=== PATIENT | female | born 1940 | race African-American/Black ===

== ENCOUNTER 2016-09-27 17:14 | Inpatient (IN) | payer MEDICARE, MEDICAID ==
[~2016-09-27] VITALS: Ht 160 cm; Wt 130.2 kg
[2016-09-27] MEDS ORDERED: IV NORMAL SALINE 1000ML BAG 1,000 ML IV SCH ×2 (17:35→19:10)
[2016-09-27] MEDS ORDERED: dilTIAZem IV PUSH 25 MG/5 ML VIAL IVP ONE (17:45)
[2016-09-27] MEDS ORDERED: ASPIRIN CHEWABLE 81 MG TABLET. PO ONE (17:45)
[2016-09-27] MEDS ORDERED: fentaNYL PF VIAL 100 MCG/2 ML VIAL IV PRN ×2 (17:45→19:15)
[2016-09-27 17:56] LABS: BASO % 1 % (0-3); EOS % 2 % (0-3); HEMATOCRIT 36.4 % (36.0-47.0); HEMOGLOBIN 11.5 g/dL (12.0-15.5); LYMPH # 1.9 x10^3/uL (1.0-4.8); LYMPH % 35 % (24-48); MEAN CORPUSCULAR HEMOGLOBIN 25 pg (25-35); MEAN CORPUSCULAR HGB CONC 32 g/dL (31-37); MEAN CORPUSCULAR VOLUME 79 fL (79-100); MONO % 5 % (0-9); NEUT % 57 % (31-73); PLATELET COUNT 311 x10^3/uL (140-400); RED BLOOD COUNT 4.63 x10^6/uL (3.50-5.40); RED CELL DISTRIBUTION WIDTH 13.3 % (11.5-14.5); WHITE BLOOD COUNT 5.3 x10^3/uL (4.0-11.0)
[2016-09-27 18:00] LABS: CALCIUM 8.9 mg/dL (8.5-10.1); CREATININE 1.6 mg/dL (0.6-1.0); POTASSIUM 3.3 mmol/L (3.5-5.1)
[2016-09-27 18:07] LABS: ALBUMIN 3.3 g/dL (3.4-5.0); ALBUMIN/GLOBULIN RATIO 0.8 (1.0-1.7); MAGNESIUM 1.7 mg/dL (1.8-2.4); TOTAL BILIRUBIN 0.2 mg/dL (0.2-1.0); TOTAL PROTEIN 7.5 g/dL (6.4-8.2)
[2016-09-27 18:14] LABS: CKMB MASS 0.8 ng/mL (0.0-3.6)
--- NOTE | 2016-09-27 19:09 | PHYS DOC ---
Past Medical History Past Medical History: A-Fib, Anemia, CHF, Other Additional Past Medical Histor: Sleep apnea. Past Surgical History: Angioplasty, Hysterectomy, Other Additional Past Surgical Histo: Tumor removed R)rib area,cardiac stents Additional Information: quit smoking in 1990 Alcohol Use: None Drug Use: None Adult General Chief Complaint Chief Complaint: RAPID HEART RATE HPI HPI Patient is a 75 year old female who presents with complaint of chest pain and irregular heartbeat. Patient states that she has been having pain over the past 2 weeks but started having severe constant pain over the past 3 days. Patient went to go see her primary physician earlier today who noted that the patient was in A. fib. The patient was then referred to Dr. Clay of cardiology who referred the patient to the emergency department. The patient is a poor historian. It is reported the patient has had a prior episode of A. fib but apparently converted to sinus rhythm many years ago. The patient is not currently on any blood thinners. Patient states that her pain is pressure-like and present and sharp. Patient denies any associated fevers. Patient states that her pain is improved with lying flat it worsens when she sits up. Patient rates the pain as 6 out of 10 when sitting up. Review of Systems Review of Systems Constitutional: Denies fever or chills [] Eyes: Denies change in visual acuity, redness, or eye pain [] HENT: Denies nasal congestion or sore throat [] Respiratory: Shortness of breath [] Cardiovascular: Chest pain [] GI: Denies abdominal pain, nausea, vomiting, bloody stools or diarrhea [] : Denies dysuria or hematuria [] Musculoskeletal: Denies back pain or joint pain [] Integument: Denies rash or skin lesions [] Neurologic: Denies headache, focal weakness or sensory changes [] Current Medications Current Medications Current Medications Medications (Trade) Dose Ordered Sig/Felix Start Time Stop Time Status Last Admin Dose Admin Aspirin (Children'S Aspirin) 324 mg 1X ONCE 09/27/16 17:45 09/27/16 17:46 DC 09/27/16 17:57 324 MG Diltiazem HCl (Cardizem) 20 mg 1X ONCE 09/27/16 17:45 09/27/16 17:46 DC 09/27/16 17:58 20 MG Diltiazem HCl 125 mg/Dextrose 125 ml @ 0 mls/hr CONT PRN 09/27/16 18:45 Fentanyl Citrate (Fentanyl 2ml Vial) 50 mcg PRN Q15MIN PRN 09/27/16 17:45 09/28/16 17:44 Sodium Chloride 1,000 ml @ 100 mls/hr Q10H 09/27/16 17:35 09/28/16 03:34 09/27/16 17:35 100 MLS/HR Allergies Allergies Allergies Coded Allergies Type Severity Reaction Last Updated Verified codeine Adverse Reaction Intermediate nausea and vomiting 09/27/16 Yes Physical Exam Physical Exam Constitutional: Alert, afebrile, appears in mild to moderate discomfort. [] HENT: Normocephalic, atraumatic, bilateral external ears normal, oropharynx moist, no oral exudates, nose normal. [] Eyes: PERRLA, EOMI, conjunctiva normal, no discharge. [] Neck: Normal range of motion, no tenderness, supple, no stridor. [] Cardiovascular: Tachycardia, irregular rhythm, no murmur [] Lungs & Thorax: Bilateral breath sounds clear to auscultation [] Abdomen: Bowel sounds normal, soft, no tenderness, no masses, no pulsatile masses. [] Skin: Warm, dry, no erythema, no rash. [] Back: No tenderness, no CVA tenderness. [] Extremities: No tenderness, no cyanosis, no clubbing, ROM intact, no edema. [] Neurologic: Alert and oriented X 3, normal motor function, normal sensory function, no focal deficits noted. [] Current Patient Data Vital Signs Vital Signs Date Time Temp Pulse Resp B/P (MAP) Pulse Ox O2 Delivery O2 Flow Rate FiO2 09/27/16 17:59 106 20 119/73 (88) 98 09/27/16 17:23 98.6 Room Air 98.6 Lab Values Laboratory Tests Test 09/27/16 17:45 White Blood Count 5.3 x10^3/uL (4.0-11.0) Red Blood Count 4.63 x10^6/uL (3.50-5.40) Hemoglobin 11.5 g/dL (12.0-15.5) L Hematocrit 36.4 % (36.0-47.0) Mean Corpuscular Volume 79 fL (79-100) Mean Corpuscular Hemoglobin 25 pg (25-35) Mean Corpuscular Hemoglobin Concent 32 g/dL (31-37) Red Cell Distribution Width 13.3 % (11.5-14.5) Platelet Count 311 x10^3/uL (140-400) Neutrophils (%) (Auto) 57 % (31-73) Lymphocytes (%) (Auto) 35 % (24-48) Monocytes (%) (Auto) 5 % (0-9) Eosinophils (%) (Auto) 2 % (0-3) Basophils (%) (Auto) 1 % (0-3) Neutrophils # (Auto) 3.0 x10^3uL (1.8-7.7) Lymphocytes # (Auto) 1.9 x10^3/uL (1.0-4.8) Monocytes # (Auto) 0.3 x10^3/uL (0.0-1.1) Eosinophils # (Auto) 0.1 x10^3/uL (0.0-0.7) Basophils # (Auto) 0.0 x10^3/uL (0.0-0.2) Sodium Level 138 mmol/L (136-145) Potassium Level 3.3 mmol/L (3.5-5.1) L Chloride Level 103 mmol/L (98-107) Carbon Dioxide Level 26 mmol/L (21-32) Anion Gap 9 (6-14) Blood Urea Nitrogen 21 mg/dL (7-20) H Creatinine 1.6 mg/dL (0.6-1.0) H Estimated GFR (Cockcroft-Gault) 38.0 BUN/Creatinine Ratio 13 (6-20) Glucose Level 169 mg/dL (70-99) H Calcium Level 8.9 mg/dL (8.5-10.1) Magnesium Level 1.7 mg/dL (1.8-2.4) L Total Bilirubin 0.2 mg/dL (0.2-1.0) Aspartate Amino Transferase (AST) 14 U/L (15-37) L Alanine Aminotransferase (ALT) 29 U/L (14-59) Alkaline Phosphatase 111 U/L (46-116) Creatine Kinase 135 U/L (26-192) Creatine Kinase MB (Mass) 0.8 ng/mL (0.0-3.6) Creatine Kinase MB Relative Index 0.6 % (0-4) Troponin I Quantitative < 0.017 ng/mL (0.000-0.055) BP-Jpr-U-Type Natriuretic Peptide 361 pg/mL (0-449) Total Protein 7.5 g/dL (6.4-8.2) Albumin 3.3 g/dL (3.4-5.0) L Albumin/Globulin Ratio 0.8 (1.0-1.7) L Lipase 183 U/L (73-393) Laboratory Tests 09/27/16 17:45 Laboratory Tests 09/27/16 17:45 EKG EKG Interpreted by me: Heart rate 121, atrial fibrillation with rapid ventricular response, T-wave inversions in V2 through V4, no acute ST elevations or depressions [] Radiology/Procedures Radiology/Procedures One view AP chest x-ray interpreted by me: No infiltrate, no effusions, normal cardiac silhouette [] Course & Med Decision Making Course & Med Decision Making Pertinent Labs and Imaging studies reviewed. (See chart for details) Patient was started on Cardizem in the emergency department with improvement in heart rate. Patient however remains in atrial fibrillation. Patient started on IV heparin for anticoagulation to prevent thromboemboli due to irregular heart rhythm. I spoke with Dr. Luz who accepted care patient in hospital. A consult was placed to Dr. Henriquez of cardiology to follow patient in hospital. Critical care time excluding procedures: 50 minutes Dragon Disclaimer Dragon Disclaimer This electronic medical record was generated, in whole or in part, using a voice recognition dictation system. Departure Departure Impression: Primary Impression: Atrial fibrillation with RVR Additional Impressions: Chest pain Renal insufficiency Disposition: ADMITTED INPATIENT Admitting Physician: Other Condition: GUARDED Referrals: ANG ANDERSON MD (PCP) Problem Qualifiers Additional Impressions: Chest pain Chest pain type: unspecified Qualified Codes: R07.9 - Chest pain, unspecified LEYDI FULLER MD Sep 27, 2016 19:09
[2016-09-27] MEDS ORDERED: ONDANSETRON PF 4 MG/2 ML VIAL. IV PRN (19:15)
[2016-09-27] MEDS ORDERED: HEPARIN for IV BOLUS 10,000 UNIT/10 ML VIAL. IV ONE (19:15)
[2016-09-27] MEDS ORDERED: HEPARIN 25,000UTS/500ML PREMIX 500 ML IV PRN (19:15)
[2016-09-27] MEDS ORDERED: ACETAMINOPHEN 325 MG TABLET. PO PRN (19:15)
[2016-09-27 20:00] VITALS: BP 112/71
[2016-09-27 20:04] VITALS: BP 112/71
[2016-09-27 21:00] VITALS: BP 122/62
--- NOTE | 2016-09-27 21:49 | ACF ---
Admission Forms Criteria ATRIAL FIBRILLATION Clinical Indications for Admission to Inpatient Care (Place 'X' for any and all applicable criteria): Admission indicated for ANY ONE of the following(1)(2)(3)(4)(5) : [ ]I. Myocardial ischemia [ ]II. Dyspnea or hypoxemia [ ]III. Hemodynamic instability [ ]IV. Heart failure (e.g., pulmonary edema) (7) [ ]V. New-onset (less than 48 hours) atrial fibrillation with high risk for causing complications secondary to comorbidities (eg, symptomatic heart failure ) [ ]. Altered mental status [ ]VII. Syncope [ ]VIII. Patient has implantable cardioverter defibrillator that has fired more than once within past 24hr or needs immediate adjustment of settings that cannot be done other than in inpatient setting. (8) [ ]IX. Suspected accessory pathway (e.g., Ublid-Gjtpszfsi-Ttsmc syndrome) on ECG [ ]X. Recent systemic thromboembolism (eg, stroke) [ ]XI. Medication toxicity (e.g., digitalis) causing arrhythmia(9) [ ]XII. Underlying medical condition that necessitates inpatient care (e.g., thyrotoxicosis, pneumonia) (10) [ ]XIII. Continuous ECG monitoring is required for condition causing arrhythmia (e.g., severe hyperkalemia, hypokalemia, acid-base disturbance).(11)(12)(13) [ ]XIV. Initiation of antiarrhythmic drug therapy is needed in patient at high risk of adverse effects as indicated by ANY ONE of the following: [ ]a) Significant structural heart disease (e.g., reduced ejection fraction, congenital heart disease, valvular heart disease) [ ]b) Prolonged QT interval [ ]c) Underlying sinus node or atrioventricular conduction disturbances [ ]d) Need for treatment with antiarrhythmic drugs that have significant proarrhythmic potential (e.g., dofetilide, sotalol, procainamide) [ ]e) Patient whose sinus rhythm has never been observed on ECG [ ]XV. Intolerable symptoms despite optimal outpatient treatment [ ]XVI. Elective or urgent cardioversion that cannot be performed on outpatient basis or during observation care. [A] (Use also Atrial Fibrillation: Observation Care ) as appropriate.(14) [ ]XVII.Contraindications and/or Inappropriate clinical situations for Observational Care in patients with Atrial Fibrillation, when ANY ONE of the following is required: [ ]a) Patient with High risk of cardiac embolism (e.g, patients with previous cardiac embolism, LVEF < 40%, age >75 and patients with prosthetic valve) 18 [ ]b) Patient with Moderate risk including DM patient, CAD and patient aged 65-75 18 [ ]c) Patient with any change in cardiac biomarker especially troponin should be managed as high risk in an inpatient setting 19 [ ]d) Physician judgement irrespective of ECG and other diagnostic findings 20 [X]XVIII.General contraindications and/or Inappropriate clinical situations for Observational Care in patients with Atrial Fibrillation, when ANY ONE of the following is required: [X]a) Prediction of prolongation of LOS based on ANY ONE of the following may be considered as a contraindication for observational care 2, 3, 4, 5, 6, 7, 8, 9, 10, 11 [X]i) Age > 65 yrs. [ ]ii) Patient arriving by ambulance [ ]iii) Patient with high acuity [ ]iv) Patient requiring vital sign monitoring [ ]v) Patient on IV medication [ ]b) Systolic blood pressures 180mmHg 3,12 [ ]c) Patient with altered mental status including delirium and other alteration of consciousness3 [ ]d) Patient whose discharge disposition will be to a usp home or rehabilitation home should not be managed in Emergency Department Observation Unit. CMS rule requires 3 days hospital stay before such placement.3,13 [ ]e) Patient with failure to thrive due to broad array of etiologies 3,16,17 [ ]f) Inability to ambulate 3,14 Extended stay beyond goal length of stay may be needed for (1)(25)(26): [ ]a) Unstable comorbidities [ ]b) Persistently uncontrolled atrial fibrillation or other arrhythmias [ ]c) Acute thromboembolic event (e.g., stroke, limb ischemia) [ ]d) Need for inpatient attainment of full anticoagulation The original [employer] content created by [employer] has been revised. The portions of the content which have been revised are identified through the use of italic text or in bold, and [facility] has neither reviewed nor approved the modified material. All other unmodified content is copyright [employer]. Please see references footnoted in the original [facility] edition 2016 Admission Criteria Met?: Yes YOEL AGUILAR 5, 2017 21:49
[2016-09-27 22:00] VITALS: BP 121/67
[2016-09-27 22:47] VITALS: BP 120/64
[2016-09-27 23:00] VITALS: BP 123/62
--- NOTE | 2016-09-27 23:19 | HP ---
ADMIT DATE: 09/27/2016 CHIEF COMPLAINT: Shortness of breath, atrial fibrillation with rapid ventricular response. HISTORY OF PRESENT ILLNESS: The patient is a 75-year-old -[place] woman who presented on the advice of her primary care physician with chest pain and shortness of breath. She was found with AFib and RVR and admitted to the hospital. On further questioning, she admits that her pain has been off and on for the past 2 weeks, but over the past 3 days, the pain has been getting more severe as well as more frequent. She actually saw her PCP earlier today who noted her to be in AFib and she was referred to Dr. Clay, her yard stocker, who promptly referred her to the ER for further workup. The patient thinks she had a previous episode of AFib, but apparently converted back to sinus rhythm on her own. She has not been on blood thinners in the past few years. She denies any fevers or chills. Her pain actually is sharp and improved with lying flat, worse with sitting up. Currently, she is supine, pain is adequate and her breathing has much improved. She herself is unable to tell that her heart beat is fast. PAST MEDICAL HISTORY: CHF, AFib, obstructive sleep apnea, anemia, CAD, status post angioplasty, had "melanoma on her chest," on further questioning, however, appears to be benign cyst. FAMILY HISTORY: Unknown to the patient. SOCIAL HISTORY: Lives by herself. Quit smoking in the mid 90s. Denies any alcohol or drug use. ALLERGIES: CODEINE. MEDICATIONS: MAR reconciled with home medications. REVIEW OF SYSTEMS: Breathing and chest pain are much improved at this time. She feels comfortable. Denies any fevers or chills. Denies any nausea, vomiting, diaphoresis. Rest of organ system review is negative. PHYSICAL EXAMINATION: VITAL SIGNS: From today show a blood pressure of 112/71, heart rate of 105, respiratory rate at 20. She is afebrile. GENERAL: This is a 75-year-old obese -[place] woman, alert and oriented, no acute distress. HEENT: Shows no scleral icterus. NECK: Supple, without any palpable lymphadenopathy. LUNGS: Fairly clear anteriorly. HEART: Irregular and tachycardic. ABDOMEN: Obese, positive bowel sounds, no tenderness to palpation. EXTREMITIES: Show no edema. SKIN: Warm, soft and dry without any rash. LABORATORY DATA: CBC with WBC of 5.3, hemoglobin 11.5, platelets of 311, BUN and creatinine of 21 and 1.6, potassium at 3.3, mag at 1.7. LFTs within normal. IMAGING: Chest x-ray obtained in the Emergency Room and reviewed by myself shows no acute cardiopulmonary findings, sternotomy wires noted. ASSESSMENT AND PLAN: The patient is a 75-year-old woman with CAD, CHF, now AFib with RVR. Possibly history of AFib in the past. For now, she has been started on Cardizem drip as well as heparin, given her renal issues, precluding Lovenox. We will monitor for now, titrate Cardizem as tolerated. Cardiac consult will be obtained in a.m. We will need echocardiogram as well as potential further workup for heart disease and AFib. The patient does have anemia, which is borderline, microcytic. Suspicion for iron deficiency is given, cannot rule out possible inherited anemia as well. We will obtain iron studies and replete vitamins as indicated. ROSELINE SCHREIBER MD DR: UR/nts JOB#: [id number] / [id number] ANG Loyola MD MTDD
[2016-09-27] MEDS ORDERED: MELO7.5T29 PO (23:26)
[2016-09-27] MEDS ORDERED: ESCI10TA PO (23:26)
[2016-09-27] MEDS ORDERED: MULT-658 PO (23:26)
[2016-09-27] MEDS ORDERED: FERR-26 PO (23:26)
[2016-09-27] MEDS ORDERED: FURO40TA4 PO (23:26)
[2016-09-27] MEDS ORDERED: METO25TA9 PO (23:26)
[2016-09-27] MEDS ORDERED: BUPR300T4 PO (23:26)
[2016-09-27] MEDS ORDERED: ATOR10TA60 PO (23:26)
[2016-09-27] MEDS ORDERED: LEVO125T PO (23:26)
[2016-09-27] MEDS ORDERED: LISI-334 PO (23:26)
[2016-09-27] MEDS ORDERED: IPRA4AER IH (23:26)
[2016-09-27] MEDS ORDERED: OMEG300C PO (23:26)
[2016-09-27] MEDS ORDERED: ERGO500027 PO (23:26)
[2016-09-27] MEDS ORDERED: POTA20TA82 PO (23:26)
[2016-09-28] VITALS (12 sets, daily range): BP systolic 95–140; BP diastolic 54–79
[2016-09-28] MEDS ORDERED: PNEUMOCOCCAL VAX SCREEN BY RX. MC ONE
[2016-09-28 02:53] LABS: BASO % 1 % (0-3); EOS % 3 % (0-3); HEMATOCRIT 34.8 % (36.0-47.0); HEMOGLOBIN 11.1 g/dL (12.0-15.5); LYMPH # 2.3 x10^3/uL (1.0-4.8); LYMPH % 41 % (24-48); MEAN CORPUSCULAR HEMOGLOBIN 25 pg (25-35); MEAN CORPUSCULAR HGB CONC 32 g/dL (31-37); MEAN CORPUSCULAR VOLUME 78 fL (79-100); MONO % 6 % (0-9); NEUT % 49 % (31-73); PLATELET COUNT 310 x10^3/uL (140-400); RED BLOOD COUNT 4.47 x10^6/uL (3.50-5.40); RED CELL DISTRIBUTION WIDTH 13.2 % (11.5-14.5); WHITE BLOOD COUNT 5.6 x10^3/uL (4.0-11.0)
[2016-09-28 03:25] LABS: CALCIUM 8.7 mg/dL (8.5-10.1); CREATININE 1.5 mg/dL (0.6-1.0); POTASSIUM 3.6 mmol/L (3.5-5.1)
[2016-09-28 03:46] LABS: % SAT IRON 26 % (15-34); IRON,SERUM 54 ug/dL (50-170)
--- NOTE | 2016-09-28 07:43 | EKG ---
[facility] [address] [place] [address] Test Date: 2016-09-27 Test Time: 17:28:30 Pat Name: SHANTI VALLEJO Department: Room: 244 1 Gender: F Shrimp Picker: : [id number] Requested By: LEYDI FULLER Order Number: [id number] Reading MD: Lana Davila Measurements Intervals [place] Rate: 121 P: -69 MD: 124 QRS: -23 QRSD: 74 T: 85 QT: 330 QTc: 471 Interpretive Statements SINUS TACHYCARDIA ATRIAL PREMATURE COMPLEX(ES) LEFTWARD AXIS T ABNORMALITY IN ANTEROSEPTAL LEADS ABNORMAL ECG RI6.01 No previous ECG available for comparison Electronically Signed On 09-30-2016 22:26:56 CDT by Lana Davila
--- NOTE | 2016-09-28 08:26 | RAD ---
Portable chest, 09/27/2016: History: Chest pain There has been a previous median sternotomy. The heart is at the upper limits of normal in size. There is tortuosity of the thoracic aorta. The pulmonary vascularity is normal. No pulmonary infiltrates are seen. There is no evidence of pleural fluid. IMPRESSION: No acute cardiopulmonary abnormality is detected.
[2016-09-28] MEDS ORDERED: PNEUMOC CONJ VACC 23-VALENT 0.5 ML VIAL. VAX IM ONE (09:00)
[2016-09-28] MEDS ORDERED: ONDANSETRON PF 4 MG/2 ML VIAL. IV PRN (09:31)
[2016-09-28] MEDS ORDERED: ERGOCALCIFEROL (VITAMIN D2) 50,000 UNIT CAPSULE. PO SCH (10:00)
[2016-09-28] MEDS ORDERED: METOPROLOL SUCC 24HR ER 25 MG TAB.ER.24H. PO SCH (10:00)
[2016-09-28] MEDS ORDERED: LISINOPRIL 20 MG TABLET PO SCH (10:00)
[2016-09-28] MEDS: IPRATRPIUM/ALBUTEROL 0.5/2.5MG 3 ML NEBU. NEB SCH ×3 (10:56→19:41)
--- NOTE | 2016-09-28 10:57 | PDOC2 ---
ANNE CORTEZ WET CHAR CONVEYOR TENDER 09/28/16 1057: CARDIAC CONSULT DATE OF CONSULT Date of Consult DATE: 09/28/16 TIME: 10:48 REASON FOR CONSULT Reason for Consult: AFIB with RVR REFERRING PHYSICIAN Referring Physician: Dr. Clifford SOURCE Source: Chart review, Patient HISTORY OF PRESENT ILLNESS HISTORY OF PRESENT ILLNESS This is 75 yo female who presented with complaints of chest pain and shortness of breath. Patient reports she has been experiencing shortness and breath and fatigue for the last couple of week. Much worse the last couple of days, which prompted her to visit her PCP. At visit, was noted to be in AFIB with RVR and was referred to the ED for further evaluation and treatment. Last week, developed chest pain. Describes as burning in her central chest. Took antacid without relieved. Pain seemed to be worsened by applying pressure to her chest; would make the pain "tight." Repositioning would improve the pain. Has been fatigued for the last couple of weeks and also c/o CUI for the last week intermittently. Denies any palpitations, dizziness, diaphoresis, orthopnea, LE edema, or nausea/vomiting. Since admission, CP and SOA have resolved. Reports compliance with medications. Does have a history of CHD and CAD with reports of stent placement in 1999. Use to follow with environmental solutions engineer at but has not seen one in many years. Being managed by PCP. PAST MEDICAL HISTORY Cardiovascular: AFIB (Paroxysmal ), CAD (s/p remote stent ), CHF (diastolic ), HTN Pulmonary: COPD, Other (SUMIT) GI: GERD Heme/Onc: Anemia NOS Psych: Depression Musculoskeletal: Osteoarthritis, Other (DJD ) Rheumatologic: No pertinent hx Infectious disease: No pertinent hx ENT: No pertinent hx Renal/: Chronic renal insuff Endocrine: Hypothyroidism Dermatology: No pertinent hx PAST SURGICAL HISTORY Past Surgical History: Total knee replacement, Hysterectomy, Other (skin CA removal) FAMILY HISTORY Family History: Coronary Artery Disease, Diabetes, Hypertension SOCIAL HISTORY Smoke: No ALCOHOL: none Drugs: None Lives: Alone CURRENT MEDICATIONS CURRENT MEDICATIONS Current Medications Medications (Trade) Dose Ordered Sig/Felix Route PRN Reason Start Time Stop Time Status Last Admin Dose Admin Diltiazem HCl (Cardizem) 20 mg 1X ONCE IVP 09/27/16 17:45 09/27/16 17:46 DC 09/27/16 17:58 Aspirin (Children'S Aspirin) 324 mg 1X ONCE PO 09/27/16 17:45 09/27/16 17:46 DC 09/27/16 17:57 Sodium Chloride 1,000 ml @ 100 mls/hr Q10H IV 09/27/16 17:35 09/28/16 03:34 DC 09/27/16 17:35 Diltiazem HCl 125 mg/Dextrose 125 ml @ 0 mls/hr CONT PRN IV SEE I/O RECORD 09/27/16 18:45 09/27/16 19:06 Heparin Sodium (Porcine) (Heparin Sodium) 4,000 unit 1X ONCE IV 09/27/16 19:15 09/27/16 19:16 DC 09/27/16 20:25 Heparin Sodium/ Dextrose 500 ml @ 0 mls/hr CONT PRN IV SEE I/O RECORD 09/27/16 19:15 09/27/16 20:35 Sodium Chloride 1,000 ml @ 100 mls/hr Q10H IV 09/27/16 19:10 09/27/16 23:27 DC 09/27/16 20:33 ALLERGIES ALLERGIES: Coded Allergies: codeine (Verified Adverse Reaction, Intermediate, nausea and vomiting, 09/27) ROS Review of System 14 point ROS conducted with pertinent positives noted above in HPI. PHYSICAL EXAM General: Alert, Oriented X3, Cooperative, No acute distress HEENT: Mucous membr. moist/pink Lungs: Clear to auscultation, Normal air movement Heart: Regular rate, Normal S1, Normal S2, Other (soft systolic murmur ) Abdomen: Other (truncal obesity ) Extremities: No edema, Normal pulses Skin: No significant lesion Neuro: Normal speech, Sensation intact Psych/Mental Status: Mental status NL, Mood NL MUSCULOSKELETAL: Osteoarthritic changes both hands VITALS VITALS Vital Signs Date Time Temp Pulse Resp B/P (MAP) Pulse Ox O2 Delivery O2 Flow Rate FiO2 09/28/16 07:58 97.9 90 20 118/61 (80) 97 Room Air 97.9 LABS Lab: Laboratory Tests Test 09/27/16 17:45 09/28/16 02:25 09/28/16 07:15 White Blood Count 5.3 x10^3/uL (4.0-11.0) 5.6 x10^3/uL (4.0-11.0) Red Blood Count 4.63 x10^6/uL (3.50-5.40) 4.47 x10^6/uL (3.50-5.40) Hemoglobin 11.5 g/dL (12.0-15.5) 11.1 g/dL (12.0-15.5) Hematocrit 36.4 % (36.0-47.0) 34.8 % (36.0-47.0) Mean Corpuscular Volume 79 fL (79-100) 78 fL (79-100) Mean Corpuscular Hemoglobin 25 pg (25-35) 25 pg (25-35) Mean Corpuscular Hemoglobin Concent 32 g/dL (31-37) 32 g/dL (31-37) Red Cell Distribution Width 13.3 % (11.5-14.5) 13.2 % (11.5-14.5) Platelet Count 311 x10^3/uL (140-400) 310 x10^3/uL (140-400) Neutrophils (%) (Auto) 57 % (31-73) 49 % (31-73) Lymphocytes (%) (Auto) 35 % (24-48) 41 % (24-48) Monocytes (%) (Auto) 5 % (0-9) 6 % (0-9) Eosinophils (%) (Auto) 2 % (0-3) 3 % (0-3) Basophils (%) (Auto) 1 % (0-3) 1 % (0-3) Neutrophils # (Auto) 3.0 x10^3uL (1.8-7.7) 2.8 x10^3uL (1.8-7.7) Lymphocytes # (Auto) 1.9 x10^3/uL (1.0-4.8) 2.3 x10^3/uL (1.0-4.8) Monocytes # (Auto) 0.3 x10^3/uL (0.0-1.1) 0.3 x10^3/uL (0.0-1.1) Eosinophils # (Auto) 0.1 x10^3/uL (0.0-0.7) 0.2 x10^3/uL (0.0-0.7) Basophils # (Auto) 0.0 x10^3/uL (0.0-0.2) 0.0 x10^3/uL (0.0-0.2) Sodium Level 138 mmol/L (136-145) 141 mmol/L (136-145) Potassium Level 3.3 mmol/L (3.5-5.1) 3.6 mmol/L (3.5-5.1) Chloride Level 103 mmol/L (98-107) 104 mmol/L (98-107) Carbon Dioxide Level 26 mmol/L (21-32) 28 mmol/L (21-32) Anion Gap 9 (6-14) 9 (6-14) Blood Urea Nitrogen 21 mg/dL (7-20) 21 mg/dL (7-20) Creatinine 1.6 mg/dL (0.6-1.0) 1.5 mg/dL (0.6-1.0) Estimated GFR (Cockcroft-Gault) 38.0 41.0 BUN/Creatinine Ratio 13 (6-20) Glucose Level 169 mg/dL (70-99) 111 mg/dL (70-99) Calcium Level 8.9 mg/dL (8.5-10.1) 8.7 mg/dL (8.5-10.1) Magnesium Level 1.7 mg/dL (1.8-2.4) Total Bilirubin 0.2 mg/dL (0.2-1.0) Aspartate Amino Transf (AST/SGOT) 14 U/L (15-37) Alanine Aminotransferase (ALT/SGPT) 29 U/L (14-59) Alkaline Phosphatase 111 U/L (46-116) Creatine Kinase 135 U/L (26-192) Creatine Kinase MB (Mass) 0.8 ng/mL (0.0-3.6) Creatine Kinase MB Relative Index 0.6 % (0-4) Troponin I Quantitative < 0.017 ng/mL (0.000-0.055) < 0.017 ng/mL (0.000-0.055) < 0.017 ng/mL (0.000-0.055) EY-Oyt-K-Type Natriuretic Peptide 361 pg/mL (0-449) Total Protein 7.5 g/dL (6.4-8.2) Albumin 3.3 g/dL (3.4-5.0) Albumin/Globulin Ratio 0.8 (1.0-1.7) Lipase 183 U/L (73-393) Heparin Anti-Xa Act, Unfractionated 0.94 IU/mL (0.30-0.70) Iron Level 54 ug/dL (50-170) Total Iron Binding Capacity 205 ug/dL (250-450) Iron Saturation 26 % (15-34) Ferritin 225 ng/mL (8-252) ASSESSMENT/PLAN ASSESSMENT/PLAN 1. AFIB with RVR with h/o PAFIB. Stop Cardizem gtt. Resume home BB and increase dose for better rate control [id number] correlating with a 7.2% risk for stroke Lovenox treatment dosing for stroke prophylaxis consider for Eliquis upon discharge; no history of GI bleeds or recent falls 2. Chest pain, atypical likely MSK in origin as it is reproducible with palpation of central chest troponin series normal; AMI ruled out. 3. H/o CAD remote h/o PCI/stent placement in 1999 per report details unknown. Given history and presentation, will proceed with MPI in am to r/o ischemia NPO after MN. 4. Chronic diastolic heart failure Echo 07/08 shows preserved LV function with an EF of 55% will repeat echo compensated; continue with routine oral diuresis 5. Hypertension controlled with Cardizem gtt resume home antiHTN therapy 6. Hyperlipidemia statin therapy check lipids 7. ISAIAH with CKD 8. Hypothyroidism on replacement therapy check TSH 9. Hypomagnesemia replace. monitor lytes Problems: JENNIFER RIVERA MD 09/29/16 0838: CARDIAC CONSULT ALLERGIES ALLERGIES: Coded Allergies: codeine (Verified Adverse Reaction, Intermediate, nausea and vomiting, 09/27) ASSESSMENT/PLAN ASSESSMENT/PLAN Patient seen and examined 09/28/16. Agree with CRACKING UNIT OPERATOR's assessment and plan. Atrial fibrillation rate better controlled. Agree with stopping Cardizem infusion and increasing beta jose e dose for better rate control. Check 2-D echo to assess LV systolic function. Chest pain atypical but with history of coronary artery disease we will obtain Lexiscan nuclear stress test to rule out ischemic etiology. Agree with initiating eliquis for stroke prophylaxis. Plan for outpatient cardioversion in 3-4 weeks if patient does not convert spontaneously. Thank you for your consultation. Problems: ANNE CORTEZ APRN Sep 28, 2016 10:57 JENNIFER RIVERA MD Sep 29, 2016 08:38
[2016-09-28] MEDS: MELOXICAM 7.5 MG TABLET PO SCH ×2 (12:42→20:42)
[2016-09-28] MEDS: FERROUS SULFATE 325 MG TABLET. PO SCH ×2 (12:42→18:05)
[2016-09-28] MEDS: buPROPion XL 150 MG TAB.ER.24H. PO SCH (12:43)
[2016-09-28] MEDS: ESCITALOPRAM 10 MG TABLET. PO SCH (12:43)
[2016-09-28] MEDS: MULTIVITAMIN with MINERAL TABLET. PO SCH (12:43)
[2016-09-28] MEDS: LEVOTHYROXINE 125 MCG TABLET PO SCH (12:43)
[2016-09-28] MEDS: FUROSEMIDE 40 MG TABLET. PO SCH (12:44)
[2016-09-28] MEDS: POTASSIUM CHLORIDE 20 MEQ TABLET.ER. PO SCH (12:44)
[2016-09-28] MEDS: ANTI-COAG MONITOR BY PHARMACY. MC PRN ×2 (12:59→14:55)
[2016-09-28] MEDS ORDERED: NON FORMULARY ITEM (Ipratropium/Albuterol Sulfate (Combivent Respimat Inhal) 2 INH) IH SCH (13:00)
--- NOTE | 2016-09-28 13:12 | PDOC ---
PROGRESS NOTES Chief Complaint Chief Complaint 1. AFIB with RVR with h/o PAFIB. 2. Chest pain, atypical likely MSK in origin as 3. H/o CAD remote h/o PCI/stent placement in 1999 per report 4. Chronic diastolic heart failure Echo 07/08 shows preserved LV function with an EF of 55% 5. Hypertension controlled with Cardizem gtt resume home antiHTN therapy 6. Hyperlipidemia statin therapy 7. ISAIAH with CKD 8. Hypothyroidism on replacement therapy 9. Hypomagnesemia History of Present Illness History of Present Illness NO complaints ABout to potty Still on cardizem gtt Denies CP or palpitations CARds note reviewed, hx paroxysmal a fib, considering elliquis on dc For echo today Home meds I have resumed MAg replaces TSH pending PLAN: Add t3 t4 since already on synthroid Lytes desi Ff up ECHo PT/OT RAte controlling agents resumed Dw RN and pt Vitals Vitals Vital Signs Date Time Temp Pulse Resp B/P (MAP) Pulse Ox O2 Delivery O2 Flow Rate FiO2 09/28/16 12:43 114 161/71 09/28/16 11:30 97.6 24 100 Room Air 97.6 Physical Exam General: Alert, Oriented X3, Cooperative, No acute distress Heart: Regular rate, Normal S1, Normal S2, Other (soft systolic murmur ) Lungs: Clear Abdomen: Normal bowel sounds, Other (truncal obesity ) Extremities: No edema, Normal pulses Skin: No significant lesion Labs LABS Laboratory Tests Test 09/27/16 17:45 09/28/16 02:25 09/28/16 07:15 09/28/16 11:05 White Blood Count 5.3 x10^3/uL (4.0-11.0) 5.6 x10^3/uL (4.0-11.0) Red Blood Count 4.63 x10^6/uL (3.50-5.40) 4.47 x10^6/uL (3.50-5.40) Hemoglobin 11.5 g/dL (12.0-15.5) 11.1 g/dL (12.0-15.5) Hematocrit 36.4 % (36.0-47.0) 34.8 % (36.0-47.0) Mean Corpuscular Volume 79 fL (79-100) 78 fL (79-100) Mean Corpuscular Hemoglobin 25 pg (25-35) 25 pg (25-35) Mean Corpuscular Hemoglobin Concent 32 g/dL (31-37) 32 g/dL (31-37) Red Cell Distribution Width 13.3 % (11.5-14.5) 13.2 % (11.5-14.5) Platelet Count 311 x10^3/uL (140-400) 310 x10^3/uL (140-400) Neutrophils (%) (Auto) 57 % (31-73) 49 % (31-73) Lymphocytes (%) (Auto) 35 % (24-48) 41 % (24-48) Monocytes (%) (Auto) 5 % (0-9) 6 % (0-9) Eosinophils (%) (Auto) 2 % (0-3) 3 % (0-3) Basophils (%) (Auto) 1 % (0-3) 1 % (0-3) Neutrophils # (Auto) 3.0 x10^3uL (1.8-7.7) 2.8 x10^3uL (1.8-7.7) Lymphocytes # (Auto) 1.9 x10^3/uL (1.0-4.8) 2.3 x10^3/uL (1.0-4.8) Monocytes # (Auto) 0.3 x10^3/uL (0.0-1.1) 0.3 x10^3/uL (0.0-1.1) Eosinophils # (Auto) 0.1 x10^3/uL (0.0-0.7) 0.2 x10^3/uL (0.0-0.7) Basophils # (Auto) 0.0 x10^3/uL (0.0-0.2) 0.0 x10^3/uL (0.0-0.2) Sodium Level 138 mmol/L (136-145) 141 mmol/L (136-145) Potassium Level 3.3 mmol/L (3.5-5.1) 3.6 mmol/L (3.5-5.1) Chloride Level 103 mmol/L (98-107) 104 mmol/L (98-107) Carbon Dioxide Level 26 mmol/L (21-32) 28 mmol/L (21-32) Anion Gap 9 (6-14) 9 (6-14) Blood Urea Nitrogen 21 mg/dL (7-20) 21 mg/dL (7-20) Creatinine 1.6 mg/dL (0.6-1.0) 1.5 mg/dL (0.6-1.0) Estimated GFR (Cockcroft-Gault) 38.0 41.0 BUN/Creatinine Ratio 13 (6-20) Glucose Level 169 mg/dL (70-99) 111 mg/dL (70-99) Calcium Level 8.9 mg/dL (8.5-10.1) 8.7 mg/dL (8.5-10.1) Magnesium Level 1.7 mg/dL (1.8-2.4) Total Bilirubin 0.2 mg/dL (0.2-1.0) Aspartate Amino Transf (AST/SGOT) 14 U/L (15-37) Alanine Aminotransferase (ALT/SGPT) 29 U/L (14-59) Alkaline Phosphatase 111 U/L (46-116) Creatine Kinase 135 U/L (26-192) Creatine Kinase MB (Mass) 0.8 ng/mL (0.0-3.6) Creatine Kinase MB Relative Index 0.6 % (0-4) Troponin I Quantitative < 0.017 ng/mL (0.000-0.055) < 0.017 ng/mL (0.000-0.055) < 0.017 ng/mL (0.000-0.055) SO-Rma-V-Type Natriuretic Peptide 361 pg/mL (0-449) Total Protein 7.5 g/dL (6.4-8.2) Albumin 3.3 g/dL (3.4-5.0) Albumin/Globulin Ratio 0.8 (1.0-1.7) Lipase 183 U/L (73-393) Heparin Anti-Xa Act, Unfractionated 0.94 IU/mL (0.30-0.70) 0.60 IU/mL (0.30-0.70) Iron Level 54 ug/dL (50-170) Total Iron Binding Capacity 205 ug/dL (250-450) Iron Saturation 26 % (15-34) Ferritin 225 ng/mL (8-252) Review of Systems Review of Systems Denies 14 pt system Assessment and Plan Assessmemt and Plan Problems Medical Problems: (1) Atrial fibrillation with RVR Status: Acute (2) Chest pain Status: Acute (3) Renal insufficiency Status: Acute Problems: Comment Review of Relevant I have reviewed the following items mona (where applicable) has been applied. Labs Laboratory Tests Test 09/27/16 17:45 09/28/16 02:25 09/28/16 07:15 09/28/16 11:05 White Blood Count 5.3 x10^3/uL (4.0-11.0) 5.6 x10^3/uL (4.0-11.0) Red Blood Count 4.63 x10^6/uL (3.50-5.40) 4.47 x10^6/uL (3.50-5.40) Hemoglobin 11.5 g/dL (12.0-15.5) 11.1 g/dL (12.0-15.5) Hematocrit 36.4 % (36.0-47.0) 34.8 % (36.0-47.0) Mean Corpuscular Volume 79 fL (79-100) 78 fL (79-100) Mean Corpuscular Hemoglobin 25 pg (25-35) 25 pg (25-35) Mean Corpuscular Hemoglobin Concent 32 g/dL (31-37) 32 g/dL (31-37) Red Cell Distribution Width 13.3 % (11.5-14.5) 13.2 % (11.5-14.5) Platelet Count 311 x10^3/uL (140-400) 310 x10^3/uL (140-400) Neutrophils (%) (Auto) 57 % (31-73) 49 % (31-73) Lymphocytes (%) (Auto) 35 % (24-48) 41 % (24-48) Monocytes (%) (Auto) 5 % (0-9) 6 % (0-9) Eosinophils (%) (Auto) 2 % (0-3) 3 % (0-3) Basophils (%) (Auto) 1 % (0-3) 1 % (0-3) Neutrophils # (Auto) 3.0 x10^3uL (1.8-7.7) 2.8 x10^3uL (1.8-7.7) Lymphocytes # (Auto) 1.9 x10^3/uL (1.0-4.8) 2.3 x10^3/uL (1.0-4.8) Monocytes # (Auto) 0.3 x10^3/uL (0.0-1.1) 0.3 x10^3/uL (0.0-1.1) Eosinophils # (Auto) 0.1 x10^3/uL (0.0-0.7) 0.2 x10^3/uL (0.0-0.7) Basophils # (Auto) 0.0 x10^3/uL (0.0-0.2) 0.0 x10^3/uL (0.0-0.2) Sodium Level 138 mmol/L (136-145) 141 mmol/L (136-145) Potassium Level 3.3 mmol/L (3.5-5.1) 3.6 mmol/L (3.5-5.1) Chloride Level 103 mmol/L (98-107) 104 mmol/L (98-107) Carbon Dioxide Level 26 mmol/L (21-32) 28 mmol/L (21-32) Anion Gap 9 (6-14) 9 (6-14) Blood Urea Nitrogen 21 mg/dL (7-20) 21 mg/dL (7-20) Creatinine 1.6 mg/dL (0.6-1.0) 1.5 mg/dL (0.6-1.0) Estimated GFR (Cockcroft-Gault) 38.0 41.0 BUN/Creatinine Ratio 13 (6-20) Glucose Level 169 mg/dL (70-99) 111 mg/dL (70-99) Calcium Level 8.9 mg/dL (8.5-10.1) 8.7 mg/dL (8.5-10.1) Magnesium Level 1.7 mg/dL (1.8-2.4) Total Bilirubin 0.2 mg/dL (0.2-1.0) Aspartate Amino Transf (AST/SGOT) 14 U/L (15-37) Alanine Aminotransferase (ALT/SGPT) 29 U/L (14-59) Alkaline Phosphatase 111 U/L (46-116) Creatine Kinase 135 U/L (26-192) Creatine Kinase MB (Mass) 0.8 ng/mL (0.0-3.6) Creatine Kinase MB Relative Index 0.6 % (0-4) Troponin I Quantitative < 0.017 ng/mL (0.000-0.055) < 0.017 ng/mL (0.000-0.055) < 0.017 ng/mL (0.000-0.055) OI-Phv-L-Type Natriuretic Peptide 361 pg/mL (0-449) Total Protein 7.5 g/dL (6.4-8.2) Albumin 3.3 g/dL (3.4-5.0) Albumin/Globulin Ratio 0.8 (1.0-1.7) Lipase 183 U/L (73-393) Heparin Anti-Xa Act, Unfractionated 0.94 IU/mL (0.30-0.70) 0.60 IU/mL (0.30-0.70) Iron Level 54 ug/dL (50-170) Total Iron Binding Capacity 205 ug/dL (250-450) Iron Saturation 26 % (15-34) Ferritin 225 ng/mL (8-252) Laboratory Tests Test 09/27/16 17:45 09/28/16 02:25 09/28/16 07:15 09/28/16 11:05 White Blood Count 5.3 x10^3/uL (4.0-11.0) 5.6 x10^3/uL (4.0-11.0) Red Blood Count 4.63 x10^6/uL (3.50-5.40) 4.47 x10^6/uL (3.50-5.40) Hemoglobin 11.5 g/dL (12.0-15.5) 11.1 g/dL (12.0-15.5) Hematocrit 36.4 % (36.0-47.0) 34.8 % (36.0-47.0) Mean Corpuscular Volume 79 fL (79-100) 78 fL (79-100) Mean Corpuscular Hemoglobin 25 pg (25-35) 25 pg (25-35) Mean Corpuscular Hemoglobin Concent 32 g/dL (31-37) 32 g/dL (31-37) Red Cell Distribution Width 13.3 % (11.5-14.5) 13.2 % (11.5-14.5) Platelet Count 311 x10^3/uL (140-400) 310 x10^3/uL (140-400) Neutrophils (%) (Auto) 57 % (31-73) 49 % (31-73) Lymphocytes (%) (Auto) 35 % (24-48) 41 % (24-48) Monocytes (%) (Auto) 5 % (0-9) 6 % (0-9) Eosinophils (%) (Auto) 2 % (0-3) 3 % (0-3) Basophils (%) (Auto) 1 % (0-3) 1 % (0-3) Neutrophils # (Auto) 3.0 x10^3uL (1.8-7.7) 2.8 x10^3uL (1.8-7.7) Lymphocytes # (Auto) 1.9 x10^3/uL (1.0-4.8) 2.3 x10^3/uL (1.0-4.8) Monocytes # (Auto) 0.3 x10^3/uL (0.0-1.1) 0.3 x10^3/uL (0.0-1.1) Eosinophils # (Auto) 0.1 x10^3/uL (0.0-0.7) 0.2 x10^3/uL (0.0-0.7) Basophils # (Auto) 0.0 x10^3/uL (0.0-0.2) 0.0 x10^3/uL (0.0-0.2) Sodium Level 138 mmol/L (136-145) 141 mmol/L (136-145) Potassium Level 3.3 mmol/L (3.5-5.1) 3.6 mmol/L (3.5-5.1) Chloride Level 103 mmol/L (98-107) 104 mmol/L (98-107) Carbon Dioxide Level 26 mmol/L (21-32) 28 mmol/L (21-32) Anion Gap 9 (6-14) 9 (6-14) Blood Urea Nitrogen 21 mg/dL (7-20) 21 mg/dL (7-20) Creatinine 1.6 mg/dL (0.6-1.0) 1.5 mg/dL (0.6-1.0) Estimated GFR (Cockcroft-Gault) 38.0 41.0 BUN/Creatinine Ratio 13 (6-20) Glucose Level 169 mg/dL (70-99) 111 mg/dL (70-99) Calcium Level 8.9 mg/dL (8.5-10.1) 8.7 mg/dL (8.5-10.1) Magnesium Level 1.7 mg/dL (1.8-2.4) Total Bilirubin 0.2 mg/dL (0.2-1.0) Aspartate Amino Transf (AST/SGOT) 14 U/L (15-37) Alanine Aminotransferase (ALT/SGPT) 29 U/L (14-59) Alkaline Phosphatase 111 U/L (46-116) Creatine Kinase 135 U/L (26-192) Creatine Kinase MB (Mass) 0.8 ng/mL (0.0-3.6) Creatine Kinase MB Relative Index 0.6 % (0-4) Troponin I Quantitative < 0.017 ng/mL (0.000-0.055) < 0.017 ng/mL (0.000-0.055) < 0.017 ng/mL (0.000-0.055) CA-Dcd-I-Type Natriuretic Peptide 361 pg/mL (0-449) Total Protein 7.5 g/dL (6.4-8.2) Albumin 3.3 g/dL (3.4-5.0) Albumin/Globulin Ratio 0.8 (1.0-1.7) Lipase 183 U/L (73-393) Heparin Anti-Xa Act, Unfractionated 0.94 IU/mL (0.30-0.70) 0.60 IU/mL (0.30-0.70) Iron Level 54 ug/dL (50-170) Total Iron Binding Capacity 205 ug/dL (250-450) Iron Saturation 26 % (15-34) Ferritin 225 ng/mL (8-252) Medications Current Medications Diltiazem HCl (Cardizem) 20 mg 1X ONCE IVP Last administered on 09/27/16 17:58 ; Start 09/27/16 at 17:45; Stop 09/27/16 at 17:46; Status DC Aspirin (Children'S Aspirin) 324 mg 1X ONCE PO Last administered on 09/27/16 17:57; Start 09/27/16 at 17:45; Stop 09/27/16 at 17:46; Status DC Fentanyl Citrate (Fentanyl 2ml Vial) 50 mcg PRN Q15MIN PRN IV PAIN GREATER THAN 3/10; Start 09/27/16 at 17:45; Stop 09/28/16 at 17:44 Sodium Chloride 1,000 ml @ 100 mls/hr Q10H IV Last administered on 09/27/16 17 :35; Start 09/27/16 at 17:35; Stop 09/28/16 at 03:34; Status DC Diltiazem HCl 125 mg/Dextrose 125 ml @ 0 mls/hr CONT PRN IV SEE I/O RECORD Last administered on 09/27/16 19:06; Start 09/27/16 at 18:45; Stop 09/28/16 at 12: 29; Status DC Heparin Sodium (Porcine) (Heparin Sodium) 4,000 unit 1X ONCE IV Last administered on 09/27/16 20:25; Start 09/27/16 at 19:15; Stop 09/28/16 at 12:29; Status DC Heparin Sodium/ Dextrose 500 ml @ 0 mls/hr CONT PRN IV SEE I/O RECORD Last administered on 09/27/16 20:35; Start 09/27/16 at 19:15; Stop 09/28/16 at 12:29; Status DC Ondansetron HCl (Zofran) 4 mg PRN Q8HRS PRN IV NAUSEA/VOMITING; Start 09/27/16 at 19:15; Stop 09/28/16 at 09:32; Status DC Fentanyl Citrate (Fentanyl 2ml Vial) 50 mcg PRN Q2HR PRN IV PAIN; Start at 19:15; Stop 09/28/16 at 19:14 Sodium Chloride 1,000 ml @ 100 mls/hr Q10H IV Last administered on 09/27/16 20 :33; Start 09/27/16 at 19:10; Stop 09/27/16 at 23:27; Status DC Acetaminophen (Tylenol) 650 mg PRN Q4HRS PRN PO FEVER; Start 09/27/16 at 19:15; Stop 09/28/16 at 19:14 Pneumococcal Polyvalent Vaccine (Do NOT chart on this placeholder) 1 each 1X ONCE MC ; Start 09/28/16 at 00:00; Stop 09/28/16 at 00:01; Status UNV Pneumococcal Polyvalent Vaccine (Pneumovax 23) 0.5 ml ONCE ONCE VAX IM ; Start 09/28/16 at 09:00; Stop 09/28/16 at 09:41; Status DC Ondansetron HCl (Zofran) 4 mg PRN Q6HRS PRN IV NAUSEA/VOMITING; Start 09/28/16 at 09:31; Stop 09/29/16 at 09:30 Ergocalciferol (Vitamin D2) 50,000 unit WEEKLY PO Last administered on 12:44; Start 09/28/16 at 10:00 Escitalopram Oxalate (Lexapro) 10 mg DAILY PO Last administered on 09/28/16 12: 43; Start 09/28/16 at 10:00 Ferrous Sulfate (Feosol) 325 mg BIDWMEALS PO Last administered on 09/28/16 12: 42; Start 09/28/16 at 10:00 Furosemide (Lasix) 40 mg DAILY PO Last administered on 09/28/16 12:44; Start at 10:00 Levothyroxine Sodium (Synthroid) 125 mcg DAILY07 PO Last administered on 12:43; Start 09/28/16 at 10:30 Lisinopril (Prinivil) 20 mg DAILY PO Last administered on 09/28/16 12:43; Start 09/28/16 at 10:00 Meloxicam (Mobic) 7.5 mg BID PO Last administered on 09/28/16 12:42; Start 09/28 at 10:00 Metoprolol Succinate (Toprol Xl) 25 mg DAILY PO ; Start 09/28/16 at 10:00; Stop 09/28/16 at 12:29; Status DC Bupropion HCl (Wellbutrin Xl) 300 mg DAILYWBKFT PO Last administered on 12:43; Start 09/28/16 at 10:00 Non-Formulary Medication 2 inh QID IH ; Start 09/28/16 at 13:00; Stop 09/28/16 at 13:00; Status DC Multivitamins (Thera M Plus) 1 tab DAILY PO Last administered on 09/28/16 12:43 ; Start 09/28/16 at 10:00 Fish Oil (Fish Oil) 1,000 mg DAILY PO ; Start 09/29/16 at 09:00 Potassium Chloride (Klor-Con) 20 meq DAILYWBKFT PO Last administered on 12:44; Start 09/28/16 at 10:00 Atorvastatin Calcium (Lipitor) 20 mg QHS PO ; Start 09/28/16 at 21:00 Albuterol/ Ipratropium (Duoneb) 3 ml RTQID NEB Last administered on 09/28/16 10 :56; Start 09/28/16 at 12:00 Metoprolol Succinate (Toprol Xl) 50 mg DAILY PO ; Start 09/29/16 at 09:00 Enoxaparin Sodium (Lovenox Per Pharmacy Treatment Dosing) 1 each PRN DAILY PRN MC SEE COMMENTS Last administered on 09/28/16 12:59; Start 09/28/16 at 12:30 Aspirin (Ecotrin) 81 mg DAILYWBKFT PO ; Start 09/28/16 at 13:00 Magnesium Sulfate/ Dextrose 50 ml @ 25 mls/hr 1X ONCE IV ; Start 09/28/16 at 13: 30; Stop 09/28/16 at 15:29 Enoxaparin Sodium (Lovenox 120mg Syringe) 120 mg Q12HR SQ ; Start 09/28/16 at 13: 30 Info (Anti-Coagulation Monitoring By Pharmacy) 1 each PRN DAILY PRN MC SEE COMMENTS Last administered on 09/28/16 12:59; Start 09/28/16 at 13:00 Active Scripts Active Reported Combivent Respimat Inhal (Ipratropium/Albuterol Sulfate) 4 Gm Aer.w.adap 2 Inh IH QID Centrum Silver Tablet (Multivits-Min/Fa/Lycopene/Lut) 1 Each Tablet 1 Each PO DAILY Fish Oil (Sabin-3 Fatty Acids) 300 Mg Capsule 1,200 Mg PO DAILY Vitamin D2 (Ergocalciferol (Vitamin D2)) 50,000 Unit Capsule 1 Cap PO WEEKLY Synthroid (Levothyroxine Sodium) 125 Mcg Tablet 1 Tab PO DAILY Ferrous Sulfate 325 Mg Tablet 1 Tab PO BID Meloxicam 7.5 Mg Tablet 1 Tab PO BID Atorvastatin Calcium Unknown Strength Tablet Unknown Dose PO DAILY Lisinopril 20 Mg Tablet 1 Tab PO DAILY Furosemide 40 Mg Tablet 1 Tab PO DAILY Potassium Chloride 20 Meq Tablet.er 20 Meq PO DAILY Bupropion Xl (Bupropion Hcl) 300 Mg Tab.er.24h 1 Tab PO DAILYWBKFT Escitalopram Oxalate 10 Mg Tablet 1 Tab PO DAILY Metoprolol Succinate ( Xl ) (Metoprolol Succinate) 25 Mg Tab.er.24h 1 Tab PO DAILY Vitals/I & O Vital Sign - Last 24 Hours 09/27/16 09/27/16 09/27/16 09/27/16 17:23 17:58 17:59 19:08 Temp 98.6 98.6 Pulse 89 112 106 101 Resp 28 20 20 B/P (MAP) 142/78 (99) 142/78 119/73 (88) 138/74 (95) Pulse Ox 98 98 98 O2 Delivery Room Air 09/27/16 09/27/16 09/27/16 09/27/16 20:00 20:00 20:04 21:00 Temp 98.0 98.0 Pulse 100 105 98 Resp 20 B/P (MAP) 112/71 (85) 112/71 (85) 122/62 (82) Pulse Ox 94 O2 Delivery Room Air Room Air 09/27/16 09/27/16 09/27/16 09/28/16 22:00 22:47 23:00 00:00 Temp 98.0 98.0 Pulse 94 101 92 96 Resp 18 B/P (MAP) 121/67 (85) 120/64 (82) 123/62 (82) 134/73 (93) Pulse Ox 94 O2 Delivery Room Air 09/28/16 09/28/16 09/28/16 09/28/16 01:00 02:00 02:53 03:00 Temp 97.9 97.9 Pulse 96 96 94 96 Resp 24 B/P (MAP) 126/62 (83) 128/70 (89) 132/79 (96) 125/78 (94) Pulse Ox 96 O2 Delivery Room Air 09/28/16 09/28/16 09/28/16 09/28/16 04:00 05:00 06:29 07:58 Temp 97.9 97.9 Pulse 86 84 97 90 Resp 20 B/P (MAP) 138/77 (97) 140/76 (97) 134/70 (91) 118/61 (80) Pulse Ox 97 O2 Delivery Room Air 09/28/16 09/28/16 09/28/16 10:59 11:30 12:43 Temp 97.6 97.6 Pulse 114 114 Resp 24 B/P (MAP) 100/71 (81) 161/71 Pulse Ox 99 100 O2 Delivery Room Air Room Air Intake and Output 09/27/16 09/27/16 09/28/16 15:00 23:00 07:00 Intake Total 350 ml 270 ml Output Total 1100 ml Balance 350 ml -830 ml BIMAL RAMSEY MD Sep 28, 2016 13:12
[2016-09-28 13:16] LABS: CHOLESTEROL/HDL RATIO 3.1
[2016-09-28] MEDS ORDERED: MAGNESIUM SULFATE 2GM 50 ML IV ONE (13:30)
[2016-09-28 13:53] LABS: FREE T4 0.9 ng/dL (0.76-1.46)
[2016-09-28] MEDS ORDERED: METOPROLOL SUCC 24HR ER 25 MG TAB.ER.24H. PO ONE (14:30)
[2016-09-28] MEDS: ASPIRIN ENTERIC COATED 81 MG TABLET.DR. PO SCH (15:07)
[2016-09-28] MEDS ORDERED: ATORVASTATIN CALCIUM 20 MG TABLET PO SCH (21:00)
[2016-09-29 03:00] VITALS: BP 128/92
[2016-09-29] MEDS: LEVOTHYROXINE 125 MCG TABLET PO SCH (06:15)
[2016-09-29 07:00] VITALS: BP 114/61
[2016-09-29] MEDS: ANTI-COAG MONITOR BY PHARMACY. MC PRN (07:32)
[2016-09-29] MEDS: IPRATRPIUM/ALBUTEROL 0.5/2.5MG 3 ML NEBU. NEB SCH ×3 (08:23→14:59)
[2016-09-29] MEDS ORDERED: REGADENOSON 0.4 MG/5 ML DISP.SYRIN. IV ONE (08:30)
[2016-09-29] MEDS ORDERED: METOPROLOL SUCC 24HR ER 50 MG TAB.ER.24H. PO SCH (09:00)
[2016-09-29] MEDS ORDERED: OMEGA-3 FATTY ACIDS/FISH OIL 1,000 MG CAPSULE. PO SCH (09:00)
[2016-09-29] MEDS: POTASSIUM CHLORIDE 20 MEQ TABLET.ER. PO SCH (10:27)
[2016-09-29] MEDS: FERROUS SULFATE 325 MG TABLET. PO SCH ×2 (10:27→17:11)
[2016-09-29] MEDS: MULTIVITAMIN with MINERAL TABLET. PO SCH (10:27)
[2016-09-29] MEDS: FUROSEMIDE 40 MG TABLET. PO SCH (10:27)
[2016-09-29] MEDS: ASPIRIN ENTERIC COATED 81 MG TABLET.DR. PO SCH (10:28)
[2016-09-29] MEDS: buPROPion XL 150 MG TAB.ER.24H. PO SCH (10:28)
[2016-09-29] MEDS: MELOXICAM 7.5 MG TABLET PO SCH (10:28)
[2016-09-29] MEDS: ESCITALOPRAM 10 MG TABLET. PO SCH (10:28)
[2016-09-29 11:00] VITALS: BP 95/58
[2016-09-29] MEDS ORDERED: ACETAMINOPHEN 325 MG TABLET. PO PRN (11:45)
--- NOTE | 2016-09-29 12:21 | PDOC3 ---
Discharge Summary Visit Information Date of Admission: Sep 27, 2016 Date of Discharge: Sep 29, 2016 Admitting Diagnosis Comment: 1. AFIB with RVR with h/o PAFIB. 2. Chest pain, atypical likely MSK in origin as 3. H/o CAD remote h/o PCI/stent placement in 1999 per report 4. Chronic diastolic heart failure Echo 07/08 shows preserved LV function with an EF of 55% 5. Hypertension controlled with Cardizem gtt resume home antiHTN therapy 6. Hyperlipidemia statin therapy 7. ISAIAH with CKD 8. Hypothyroidism on replacement therapy 9. Hypomagnesemia Final Diagnosis Problems Medical Problems: (1) Atrial fibrillation with RVR Status: Acute (2) Chest pain Status: Acute (3) Renal insufficiency Status: Acute Brief Hospital Course Allergies Allergies Coded Allergies Type Severity Reaction Last Updated Verified codeine Adverse Reaction Intermediate nausea and vomiting 09/27/16 Yes Vital Signs Vital Signs Date Time Temp Pulse Resp B/P (MAP) Pulse Ox O2 Delivery O2 Flow Rate FiO2 09/29/16 11:00 97.7 76 18 95/58 (70) 97 Room Air 97.7 Lab Results Laboratory Tests Test 09/27/16 17:45 09/28/16 02:25 09/28/16 07:15 09/28/16 11:05 White Blood Count 5.3 x10^3/uL (4.0-11.0) 5.6 x10^3/uL (4.0-11.0) Red Blood Count 4.63 x10^6/uL (3.50-5.40) 4.47 x10^6/uL (3.50-5.40) Hemoglobin 11.5 g/dL (12.0-15.5) 11.1 g/dL (12.0-15.5) Hematocrit 36.4 % (36.0-47.0) 34.8 % (36.0-47.0) Mean Corpuscular Volume 79 fL (79-100) 78 fL (79-100) Mean Corpuscular Hemoglobin 25 pg (25-35) 25 pg (25-35) Mean Corpuscular Hemoglobin Concent 32 g/dL (31-37) 32 g/dL (31-37) Red Cell Distribution Width 13.3 % (11.5-14.5) 13.2 % (11.5-14.5) Platelet Count 311 x10^3/uL (140-400) 310 x10^3/uL (140-400) Neutrophils (%) (Auto) 57 % (31-73) 49 % (31-73) Lymphocytes (%) (Auto) 35 % (24-48) 41 % (24-48) Monocytes (%) (Auto) 5 % (0-9) 6 % (0-9) Eosinophils (%) (Auto) 2 % (0-3) 3 % (0-3) Basophils (%) (Auto) 1 % (0-3) 1 % (0-3) Neutrophils # (Auto) 3.0 x10^3uL (1.8-7.7) 2.8 x10^3uL (1.8-7.7) Lymphocytes # (Auto) 1.9 x10^3/uL (1.0-4.8) 2.3 x10^3/uL (1.0-4.8) Monocytes # (Auto) 0.3 x10^3/uL (0.0-1.1) 0.3 x10^3/uL (0.0-1.1) Eosinophils # (Auto) 0.1 x10^3/uL (0.0-0.7) 0.2 x10^3/uL (0.0-0.7) Basophils # (Auto) 0.0 x10^3/uL (0.0-0.2) 0.0 x10^3/uL (0.0-0.2) Sodium Level 138 mmol/L (136-145) 141 mmol/L (136-145) Potassium Level 3.3 mmol/L (3.5-5.1) 3.6 mmol/L (3.5-5.1) Chloride Level 103 mmol/L (98-107) 104 mmol/L (98-107) Carbon Dioxide Level 26 mmol/L (21-32) 28 mmol/L (21-32) Anion Gap 9 (6-14) 9 (6-14) Blood Urea Nitrogen 21 mg/dL (7-20) 21 mg/dL (7-20) Creatinine 1.6 mg/dL (0.6-1.0) 1.5 mg/dL (0.6-1.0) Estimated GFR (Cockcroft-Gault) 38.0 41.0 BUN/Creatinine Ratio 13 (6-20) Glucose Level 169 mg/dL (70-99) 111 mg/dL (70-99) Calcium Level 8.9 mg/dL (8.5-10.1) 8.7 mg/dL (8.5-10.1) Magnesium Level 1.7 mg/dL (1.8-2.4) Total Bilirubin 0.2 mg/dL (0.2-1.0) Aspartate Amino Transf (AST/SGOT) 14 U/L (15-37) Alanine Aminotransferase (ALT/SGPT) 29 U/L (14-59) Alkaline Phosphatase 111 U/L (46-116) Creatine Kinase 135 U/L (26-192) Creatine Kinase MB (Mass) 0.8 ng/mL (0.0-3.6) Creatine Kinase MB Relative Index 0.6 % (0-4) Troponin I Quantitative < 0.017 ng/mL (0.000-0.055) < 0.017 ng/mL (0.000-0.055) < 0.017 ng/mL (0.000-0.055) SM-Fcp-W-Type Natriuretic Peptide 361 pg/mL (0-449) Total Protein 7.5 g/dL (6.4-8.2) Albumin 3.3 g/dL (3.4-5.0) Albumin/Globulin Ratio 0.8 (1.0-1.7) Lipase 183 U/L (73-393) Heparin Anti-Xa Act, Unfractionated 0.94 IU/mL (0.30-0.70) 0.60 IU/mL (0.30-0.70) Iron Level 54 ug/dL (50-170) Total Iron Binding Capacity 205 ug/dL (250-450) Iron Saturation 26 % (15-34) Ferritin 225 ng/mL (8-252) Triglycerides Level 48 mg/dL (0-150) Cholesterol Level 233 mg/dL (0-200) LDL Cholesterol, Calculated 149 mg/dL (0-100) VLDL Cholesterol, Calculated 10 mg/dL (0-40) Non-HDL Cholesterol Calculated 159 mg/dL (0-129) HDL Cholesterol 74 mg/dL (40-60) Cholesterol/HDL Ratio 3.1 Thyroid Stimulating Hormone (TSH) 31.763 uIU/mL (0.358-3.74) Free Thyroxine 0.90 ng/dL (0.76-1.46) Free Triiodothyronine (T3) pg/mL 1.89 pg/mL (2.18-3.98) Test 09/29/16 03:35 Magnesium Level 2.3 mg/dL (1.8-2.4) Laboratory Tests Test 09/29/16 03:35 Magnesium Level 2.3 mg/dL (1.8-2.4) Brief Hospital Course Ms. Hawk is a 75 old AA female admitted for atrial fib RVR, hx paroxysmal a fib. Undergoing MPI, If neg then home, NOw rate controlled, On BB and other rate controlling agents. To follow cards recs Dispo: home CARds consult Proc; MPI Discharge Information Condition at Discharge: Improved, Stable Disposition/Orders: D/C to Home Scheduled Atorvastatin Calcium (Atorvastatin Calcium), Unknown Dose PO DAILY, (Reported) Bupropion Hcl (Bupropion Xl), 1 TAB PO DAILYWBKFT, (Reported) Ergocalciferol (Vitamin D2) (Vitamin D2), 1 CAP PO WEEKLY, (Reported) Escitalopram Oxalate (Escitalopram Oxalate), 1 TAB PO DAILY, (Reported) Ferrous Sulfate (Ferrous Sulfate), 1 TAB PO BID, (Reported) Furosemide (Furosemide), 1 TAB PO DAILY, (Reported) Ipratropium/Albuterol Sulfate (Combivent Respimat Inhal), 2 INH IH QID, ( Reported) Levothyroxine Sodium (Synthroid), 1 TAB PO DAILY, (Reported) Lisinopril (Lisinopril), 1 TAB PO DAILY, (Reported) Meloxicam (Meloxicam), 1 TAB PO BID, (Reported) Metoprolol Succinate (Metoprolol Succinate ( Xl )), 1 TAB PO DAILY, (Reported) Multivits-Min/Fa/Lycopene/Lut (Centrum Silver Tablet), 1 EACH PO DAILY, ( Reported) Basco-3 Fatty Acids (Fish Oil), 1,200 MG PO DAILY, (Reported) Potassium Chloride (Potassium Chloride), 20 MEQ PO DAILY, (Reported) BIMAL RAMSEY MD Sep 29, 2016 12:21
--- NOTE | 2016-09-29 13:12 | RAD ---
APPROVED REPORT Test Type: Pharmacological Stress Nurse/Tech: Sandrita Sebastian RN Test Indications: Chest Pain Cardiac History: see ehr Medications: see ehr Medical History: see ehr Resting ECG: SR Resting Heart Rate: 67 bpm Resting Blood Pressure: 123/58mmHg Pretest Chest Pain: None Nurse/Tech Notes Lungs CTA, S1, S2 Consent: The procedure was explained to the patient in lay terms. Informed consent was witnessed. Raúl eout was entered into [email or web address]. History and Stress Test performed by [facility]ojcie[facility]. Details Pharmacologic stress testing was performed using 0.4mg per 5ml of regadenoson given intravenously ove r 7-10 seconds. Stress Symptoms No chest pain or symptoms. POST EXERCISE Reason for Termination: Infusion complete Max HR: 88 bpm Max Blood Pressure: 116/66mmHg Blood Pressure response to exercise: Normal blood pressure response during stress. Chest Pain: No. Arrhythmia: No. ST Change: No. INTERPRETATION Stress EKG Conclusion: Resting EKG showed a sinus rhythm with mild nonspecific ST segment changes. Stress EKG showed no significant changes from baseline. No EKG evidence of stress-induced ischemia. Imaging Protocol IMAGE PROTOCOL: Rest Tc-99m/stress Tc-99m 2 days Rest: Stress: Viability: Radiopharm.Tc99m BrbmturivAn64f Sestamibi Vlrf48lWq 38mCi Duration 12min. 12min. Img Date 09/28/2016 09/29/2016 Inj-Img Eyja57tym. 75min. Rest Admin Site:IV - Left WristAdministrator:RT Tony (R)(N) Stress Admin Site: IV - Left WristAdministrator: RT Tony (R)(N) STRESS DATA End Diast. Vol.119.0mlAv. Heart Rate74.0bpm LVEDV index BSA2.0mlCardiac Output0.1L/min End Syst. Vol.50.0mlCO Index BSA5.1L/min LVESV index BSA1.0mlMyocardial Fjbv047.0g Eject. Wzyuzkqg75.0% Stress Rates Pk. Fill Rate2.52EDV/secLVtime Pk. Fill 78.07msec Pk. Empty Rate3.00ESV/secLVtime Pk. Qenhv948.31msec 1/3 Pk. Fill1.82EDV/sec Stress Scores Regional WT2.00Summed WT14.00 Regional WM0.00Summed WM5.00 LV Perfusion The stress images showed a small distal inferior apical defect. The rest images showed no significant defects. Nuclear imaging suggested a small area of reversible ischemia in the distal inferior apical region. Wall Motion Left ventricular systolic function is 58% with no regional wall motion abnormalities. LV Perf. Quant 17 Seg. SSS1.00 17 Seg. SRS0.00 17 Seg. SDS1.00 Stress Defect Extent (% LAD)1.30Rest Defect Extent (% LAD)0.00Rev. Defect Extent (% LAD)1.30 Stress Defect Extent (% LCX) 6.30Rest Defect Extent (% LCX)0.00Rev. Defect Extent (% LCX)1.30 Stress Defect Extent (% RCA)2.20Rest Defect Extent (% RCA)0.00Rev. Defect Extent (% RCA)2.20 Stress Defect Extent (% BRUCE)5.90Rest Defect Extent (% BRUCE)0.00Rev. Defect Extent (% BRUCE)5.00 Conclusion 1. No EKG evidence of stress-induced ischemia. 2. Nuclear imaging suggests a small area of reversible ischemia in the distal inferior apical region. 3. Intact LV systolic function with an ejection fraction of 58%. 4. Moderately low risk nuclear stress testing.
[2016-09-29] MEDS ORDERED: APIX5TAB PO (14:23)
--- NOTE | 2016-09-29 14:28 | PDOC ---
CARMEN MANN CLINICAL EXERCISE SPECIALIST 09/29/16 1428: CARDIO Progress Notes Date and Time Date of Service 09/29/2016 Time of Evaluation 1424 Subjective Subjective: No Chest Pain, No shortness of breath, No Palpitations, No Dizziness Vitals Vitals Vital Signs Date Time Temp Pulse Resp B/P (MAP) Pulse Ox O2 Delivery O2 Flow Rate FiO2 09/29/16 11:00 97.7 76 18 95/58 (70) 97 Room Air 97.7 Weight Weight [ ] Input and Output Intake and Output Intake and Output 09/29/16 07:00 Intake Total 1464 ml Output Total 650 ml Balance 814 ml Intake Oral 1140 ml IV Total 324 ml Output Urine Total 650 ml Laboratory Labs Laboratory Tests Test 09/29/16 03:35 Magnesium Level 2.3 mg/dL (1.8-2.4) Physical Exam HEENT: Neck Supple W Full Motion Chest: Symmetric LUNGS: Other (decreased anteriorly) Heart: S1S2, RRR, other (tele: SR) Extremities: Other (1+ edemea) Neurology: alert, oriented, follow commands Assessment Assessment 1. AFIB with RVR with h/o PAFIB. converted back to SR metoprolol held due to low normotensive BP - drop back to 25 daily and move lisinopril to bedtime [id number] 5 correlating with a 7.2% risk for stroke stop ASA and Lovenox - start BID Eliquis 2. Chest pain, atypical non-ischemic MPI 3. hypothyroidism TSH > 30 defer to primary service follow up in office in about 4 weeks JENNIFER RIVERA MD 09/30/16 0823: CARDIO Progress Notes Assessment Assessment Patient seen and examined 09/29/16. Agree with EXPLOSIVE OPERATOR SUPERVISOR's assessment and plan. Patient presented back in sinus rhythm. Continue eliquis for stroke prophylaxis. Lexiscan nuclear stress test showed only a small amount of inferolateral apical wall ischemia. We will manage this medically for now and consider cardiac catheterization if she continues to have chest pain. Continue beta blockers. Follow-up with her office in 1 month. CARMEN MANN APRN Sep 29, 2016 14:28 JENNIFER RIVERA MD Sep 30, 2016 08:23
[2016-09-29] MEDS ORDERED: ANTI-COAG MONITOR BY PHARMACY. MC PRN (14:45)
[2016-09-29 15:00] VITALS: BP 108/56
[2016-09-29] MEDS ORDERED: APIXABAN 5 MG TABLET. PO SCH ×2 (17:00→21:00)
[2016-09-30] MEDS ORDERED: METOPROLOL SUCC 24HR ER 50 MG TAB.ER.24H. PO SCH (09:00)
[2016-09-30] MEDS ORDERED: LISINOPRIL 20 MG TABLET PO SCH (21:00)
== END 2016-09-29 18:55 | disposition home or self-care (01) | DRG 683 ==
LOC: ER 17:14 → 2 SOUTH 18:36
PROVIDERS: ADMIT Internal Medicine Hematology & Oncology; ATTEND Internal Medicine Hematology & Oncology
DX: N17.9 Acute kidney failure, unspecified (principal); I50.32 Chronic diastolic (congestive) heart failure; I13.0 Hypertensive heart and chronic kidney disease with heart failure and stage 1 through stage 4 chronic kidney disease, or unspecified chronic kidney disease; Z68.43 Body mass index [BMI] 50.0-59.9, adult; I48.0 Paroxysmal atrial fibrillation; G47.33 Obstructive sleep apnea (adult) (pediatric); E83.42 Hypomagnesemia; E78.5 Hyperlipidemia, unspecified; E03.9 Hypothyroidism, unspecified; I25.10 Atherosclerotic heart disease of native coronary artery without angina pectoris; J44.9 Chronic obstructive pulmonary disease, unspecified; K21.9 Gastro-esophageal reflux disease without esophagitis; Z96.659 Presence of unspecified artificial knee joint; N18.9 Chronic kidney disease, unspecified; F32.9 Major depressive disorder, single episode, unspecified; M19.90 Unspecified osteoarthritis, unspecified site; D64.9 Anemia, unspecified; E66.9 Obesity, unspecified; Z82.49 Family history of ischemic heart disease and other diseases of the circulatory system; Z83.3 Family history of diabetes mellitus; Z85.820 Personal history of malignant melanoma of skin; Z87.891 Personal history of nicotine dependence; Z95.5 Presence of coronary angioplasty implant and graft; Z90.710 Acquired absence of both cervix and uterus; Z88.5 Allergy status to narcotic agent; Z79.899 Other long term (current) drug therapy
CPT/HCPCS: 36415; 71010; 78452; 80048; 80053; 80061; 82553; 82728; 83540; 83550; 83690; 83735; 83880; 84439; 84443; 84481; 84484; 85027; 85520; 90732; 93005; 93017; 94250; 94640; 94760; 96361; 96374; 96375; 96376; A9500; J1650; J2785; J3490; J7030; J7060; J7620; 99291-25